=== PATIENT | male | born 1965 | race Hispanic/Latino ===

== ENCOUNTER 2020-12-31 19:25 | Emergency (ER) | payer SELFPAY ==
[2020-12-31 21:42] LABS: Absolute Lymphocytes (CBC) 1.4 K/uL (0.7-4.9); Hematocrit 35.5 % (39.6-49.0); Lymphocytes % 13.8 % (15.3-44.8); MPV 9.4 fL (7.6-11.3); RBC Red Blood Cell Count 3.81 M/uL (4.33-5.43)
[2020-12-31 21:45] LABS: Protime INR 1.02
--- NOTE | 2020-12-31 21:58 | RAD REPORT ---
EXAM DESCRIPTION: RAD - Chest Single View - 12/31/2020 9:45 pm CLINICAL HISTORY: COUGH COMPARISON: No comparisons FINDINGS: No evidence of edema or pneumonia. The heart size is within normal limits.No acute osseous abnormality. No significant pleural effusions or pneumothorax. Remote left-sided rib fractures. Susp ect emphysema. IMPRESSION: No acute cardiopulmonary disease.
--- NOTE | 2020-12-31 22:18 | RAD REPORT ---
EXAM DESCRIPTION: CT - Soft Tissue Neck W/Contr CLINICAL HISTORY: Dysphagia;Sore throat COMPARISON: Chest Single View dated 12/31/[address] scans are performed using dose optimization technique as appropriate and may includ e automated exposure control or mA/KV adjustment according to patient size. FINDINGS: Nasopharyngeal tissues are normal in appearance. Fossa Rosenmller are normal. Trace right maxillary sinus thickening. Parapharyngeal fat triangles are symmetric. Tongue base structures are normal. There is diffusely thickened and irregular aryepiglottic folds and pharyngeal space soft tissues. Messi ateral cervical chain lymphadenopathy. There is a left cervical chain lymph node which is necrotic me asuring 9 millimeters. Prominence of Waldeyer's ring noted. Salivary glands are normal in appearance. Bullous changes are present the left lung apex. There is a cavitary structure at the right lung apex with mildly thickened but non-nodular wall. Emphysema is noted. Included intracranial contents are un remarkable. IMPRESSION: 1. Diffusely thickened and irregular aryepiglottic folds and pharyngeal soft tissues ma y reflect neoplasm. Cervical chain lymphadenopathy is present as well. Recommend ENT referral/consult ation. 2. Fairly thin walled cavitary structure at the right lung apex probably scarring but recommend a ded icated imaging of the chest to better evaluate. Tuberculosis is a possibility. Bullous changes noted at the left lung apex.
[2020-12-31 22:19] LABS: ALT/SGPT 14 U/L (12-78); AST/SGOT 9 U/L (15-37); Albumin 3.6 g/dL (3.4-5.0); Alkaline Phosphatase 75 U/L (45-117); BUN Blood Urea Nitrogen 15 mg/dL (7-18); Bicarbonate 28 mmol/L (21-32); Bilirubin Direct < 0.1 mg/dL (0-0.2); Bilirubin Total 0.3 mg/dL (0.2-1.0); Glucose Level 93 mg/dL (74-106); Protein, Total 7.5 g/dL (6.4-8.2); Sodium Level 142 mmol/L (136-145)
[2021-01-01] MEDS ORDERED: POTASSIUM 25 MEQ EFFERV TAB ONE
--- NOTE | 2021-01-01 00:47 | EDPHYS ---
Physician Documentation [facility] Name: Jerome Iyer Age: 55 yrs Sex: Male : 1965 Arrival Date: 12/31/2020 Time: 19:28 Bed 19 Private MD: ED Physician Adan Perkins HPI: 12/31 21:00 This 55 yrs old Male presents to ER via Ambulatory with complaints of Sore mh7 Throat. 21:00 The patient presents with sore throat, dysphagia, of solids. The patient describes mh7 throat pain as intermittent. Onset: The symptoms/episode began/occurred 1 month(s) ago. Severity of symptoms: At their worst the symptoms were moderate, 7 day(s) ago, in the emergency department the symptoms are unchanged. Modifying factors: The symptoms are alleviated by nothing, the symptoms are aggravated by swallowing. Associated signs and symptoms: Pertinent positives: cough, dysphagia, nausea, Sore throat Pertinent negatives chest pain, chills, diarrhea, earache, fever, flu-like symptoms, headache, rhinorrhea, shortness of breath, vomiting. Historical: - Allergies: 19:49 No Known Allergies; kg - Home Meds: 19:49 None [Active]; kg - PMHx: 19:49 Asthma; kg - PSHx: 19:49 None; kg - Immunization history:: Adult Immunizations not up to date, Client reports having NOT received the Covid vaccine. - Social history:: Smoking status: Patient reports the use of cigarette tobacco products, smokes one-half pack cigarettes per day. ROS: 21:00 Constitutional: Negative for fever, chills, and weight loss, Eyes: Negative for injury, mh7 pain, redness, and discharge, Neck: Negative for injury, pain, and swelling, Cardiovascular: Negative for chest pain, palpitations, and edema, Abdomen/GI: Negative for abdominal pain, nausea, vomiting, diarrhea, and constipation, Back: Negative for injury and pain, : Negative for injury, bleeding, discharge, and swelling, MS/Extremity: Negative for injury and deformity, Skin: Negative for injury, rash, and discoloration, Neuro: Negative for headache, weakness, numbness, tingling, and seizure, Psych: Negative for depression, anxiety, suicide ideation, homicidal ideation, and hallucinations, Allergy/Immunology: Negative for hives, rash, and allergies, Endocrine: Negative for neck swelling, polydipsia, polyuria, polyphagia, and marked weight changes, Hematologic/Lymphatic: Negative for swollen nodes, abnormal bleeding, and unusual bruising. Exam: 21:00 Head/Face: Normocephalic, atraumatic. Eyes: Pupils equal round and reactive to light, mh7 extra-ocular motions intact. Lids and lashes normal. Conjunctiva and sclera are non-icteric and not injected. Cornea within normal limits. Periorbital areas with no swelling, redness, or edema. ENT: Nares patent. No nasal discharge, no septal abnormalities noted. Tympanic membranes are normal and external auditory canals are clear. Oropharynx with no redness, swelling, or masses, exudates, or evidence of obstruction, uvula midline. Mucous membranes moist. Neck: Trachea midline, no thyromegaly or masses palpated, and no cervical lymphadenopathy. Supple, full range of motion without nuchal rigidity, or vertebral point tenderness. No Meningismus. Chest/axilla: Normal chest wall appearance and motion. Nontender with no deformity. No lesions are appreciated. Cardiovascular: Regular rate and rhythm with a normal S1 and S2. No gallops, murmurs, or rubs. Normal PMI, no JVD. No pulse deficits. Respiratory: Lungs have equal breath sounds bilaterally, clear to auscultation and percussion. No rales, rhonchi or wheezes noted. No increased work of breathing, no retractions or nasal flaring. Abdomen/GI: Soft, non-tender, with normal bowel sounds. No distension or tympany. No guarding or rebound. No evidence of tenderness throughout. Back: No spinal tenderness. No costovertebral tenderness. Full range of motion. Skin: Warm, dry with normal turgor. Normal color with no rashes, no lesions, and no evidence of cellulitis. MS/ Extremity: Pulses equal, no cyanosis. Neurovascular intact. Full, normal range of motion. Neuro: Awake and alert, GCS 15, oriented to person, place, time, and situation. Cranial nerves II-XII grossly intact. Motor strength 5/5 in all extremities. Sensory grossly intact. Cerebellar exam normal. Normal gait. Psych: Awake, alert, with orientation to person, place and time. Behavior, mood, and affect are within normal limits. 21:00 Constitutional: The patient appears in no acute distress, alert, awake, frail. Vital Signs: 19:45 BP 148 / 102; Pulse 64; Resp 20; Temp 98.7(O); Pulse Ox 99% on R/A; Weight 44.81 kg kg (M); Height 6 ft. 1 in. (185.42 cm); Pain 10/10; 23:00 BP 144 / 90; Pulse 68; Resp 18; Pulse Ox 100% ; ea 01/01 00:30 BP 130 / 76; Pulse 66; Resp 18; Pulse Ox 99% on R/A; ea 12/31 19:45 Body Mass Index 13.03 (44.81 kg, 185.42 cm) kg MDM: 00:42 Differential diagnosis: epiglottitis, laryngitis, peritonsillar abscess pharyngitis, mh7 retropharyngeal abcess squamous cell carcinoma tonsillitis. Data reviewed: vital signs, nurses notes, lab test result(s), CBC, electrolytes, radiologic studies, CT scan. Data interpreted: Pulse oximetry: on room air is 99 %. Interpretation: normal. Counseling: I had a detailed discussion with the patient and/or guardian regarding: the historical points, exam findings, and any diagnostic results supporting the discharge/admit diagnosis, the presence of at least one elevated blood pressure reading (>120/80) during this emergency department visit, lab results, radiology results, the need for outpatient follow up, an ENT specialist, to return to the emergency department if symptoms worsen or persist or if there are any questions or concerns that arise at home. Response to treatment: the patient's symptoms have mildly improved after treatment. 00:46 Patient medically screened. [facility] 12/31 21:17 Order name: CBC with Diff [facility] 12/31 21:17 Order name: Basic Metabolic Panel [facility] 12/31 21:17 Order name: LFT's [facility] 12/31 21:17 Order name: Protime (+inr); Complete Time: 22:02 [facility] 12/31 21:17 Order name: Ptt, Activated; Complete Time: 22:02 [facility] 12/31 21:17 Order name: CBC with Automated Diff; Complete Time: 22:02 EDID 12/31 21:17 Order name: Saline Lock; Complete Time: 21:34 [facility] 07/23 21:17 Order name: Chest Single View XRAY; Complete Time: 22:02 [facility] 12/31 21:17 Order name: CT Soft Tissue Neck W/contr; Complete Time: 22:40 [facility] 12/31 21:18 Order name: Basic Metabolic Panel; Complete Time: 22:40 EDMS 12/31 21:18 Order name: Liver (Hepatic) Function; Complete Time: 22:40 EDMS Administered Medications: 00:46 Drug: Potassium Effervescent Tablet 50 mEq Route: PO; ea 00:49 Follow up: Response: Medication administered at discharge. 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 [facility] Followup: [facility] - With: Private Physician - When: 1 - 2 days - Reason: Worsening of condition, Recheck today's complaints, Continuance of care, Re-evaluation by your physician Followup: [facility] - With: Sachi Sharp MD - When: 1 - 2 days - Reason: Worsening of condition, Recheck today's complaints Discharge Instructions: - Discharge Summary Sheet [facility] - Dysphagia [facility] - Throat Cancer [facility] - Dysphagia Eating Plan, Pureed [facility] Forms: - Medication Reconciliation Form [facility] - Thank You Letter [facility] - Antibiotic Education [facility] - Prescription Opioid Use [facility] Signatures: Dispatcher [employer] Jennifer Bunch RN RN ea Holmes, Maurice, MD MD [facility] Darlin Topete RN RN kg
--- NOTE | 2021-01-01 00:47 | ER ---
Nurse's Notes 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 vomiting. Coronavirus screen: Client denies travel out of the [place] in the last 14 days. At this time, unable to obtain information related to travel outside the [place] At this time, the client does not indicate any symptoms associated with coronavirus-19. Ebola Screen: Patient negative for fever greater than or equal to 101.5 degrees Fahrenheit, and additional compatible Ebola Virus Disease symptoms Patient denies exposure to infectious person. Patient denies travel to an Ebola-affected area in the 21 days before illness onset. Initial Sepsis Screen: Does the patient meet any 2 criteria? No. Patient's initial sepsis screen is negative. Does the patient have a suspected source of infection? No. Patient's initial sepsis screen is negative. Risk Assessment: Do you want to hurt yourself or someone else? Patient reports no desire to harm self or others. Onset of symptoms was December 01, 2020. 19:45 Method Of Arrival: Ambulatory kg 19:45 Acuity: ALEXANDRA 3 kg Triage Assessment: 19:49 General: Appears emaciated, Behavior is calm, cooperative, appropriate for age, quiet. kg Pain: Complains of pain in neck. EENT: Throat with gag reflex present. Historical: - Allergies: 19:49 No Known Allergies; kg - Home Meds: 19:49 None [Active]; kg - PMHx: 19:49 Asthma; kg - PSHx: 19:49 None; kg - Immunization history:: Adult Immunizations not up to date, Client reports having NOT received the Covid vaccine. - Social history:: Smoking status: Patient reports the use of cigarette tobacco products, smokes one-half pack cigarettes per day. Screenin:50 Abuse screen: Denies threats or abuse. Denies injuries from another. Nutritional kg screening: No deficits noted. Tuberculosis screening: No symptoms or risk factors identified. Fall Risk None identified. No fall in past 12 months (0 pts). No secondary diagnosis (0 pts). No IV (0 pts). Ambulatory Aid- None/Bed Rest/Nurse Assist (0 pts). Gait- Normal/Bed Rest/Wheelchair (0 pts) Mental Status- Oriented to own ability (0 pts). Total Hercules Fall Scale indicates No Risk (0-24 pts). Assessment: 19:50 Respiratory: Airway is patent Trachea midline Respiratory effort is even, unlabored, kg relaxed. 20:21 General: Appears uncomfortable, Behavior is appropriate for age. Pain: Complains of ea pain in neck. Neuro: Level of Consciousness is awake, alert, obeys commands, Oriented to person, place, time. Cardiovascular: Patient's skin is warm and dry. Respiratory: Airway is patent Respiratory effort is even, unlabored. Derm: Skin is dry, Skin is normal, Skin temperature is warm. 22:50 Reassessment: Patient and/or family updated on plan of care and expected duration. Pain ea level reassessed. Patient is alert, oriented x 3, equal unlabored respirations, skin warm/dry/pink. 01/01 00:46 Reassessment: Patient and/or family updated on plan of care and expected duration. Pain ea level reassessed. Patient is alert, oriented x 3, equal unlabored respirations, skin warm/dry/pink. Discharge instruction given to patient verbalized the understanding of instruction. Pt left ED ambulatory accompanied by family. Vital Signs: 12/31 19:45 BP 148 / 102; Pulse 64; Resp 20; Temp 98.7(O); Pulse Ox 99% on R/A; Weight 44.81 kg kg (M); Height 6 ft. 1 in. (185.42 cm); Pain 10/10; 23:00 BP 144 / 90; Pulse 68; Resp 18; Pulse Ox 100% ; ea 01/01 00:30 BP 130 / 76; Pulse 66; Resp 18; Pulse Ox 99% on R/A; ea 12/31 19:45 Body Mass Index 13.03 (44.81 kg, 185.42 cm) kg ED Course: 12/31 19:28 Patient arrived in ED. ds1 19:49 Triage completed. kg 19:50 Arm band placed on left wrist. kg 19:50 Patient has correct armband on for positive identification. kg 20:13 Ponce, Jennifer, RN is Primary Nurse. ea 20:17 Adan Perkins MD is Attending Physician. [facility] 21:33 Inserted saline lock: 20 gauge in right forearm, using aseptic technique. Blood ea collected. 21:45 Chest Single View XRAY In Process Unspecified. EDSD 22:00 CT Soft Tissue Neck W/contr In Process Unspecified. EDSD 01/01 00:43 Sachi Sharp MD is Referral Physician. [facility] 00:47 No provider procedures requiring assistance completed. IV discontinued, intact, ea bleeding controlled, No redness/swelling at site. Pressure dressing applied. Administered Medications: 00:46 Drug: Potassium Effervescent Tablet 50 mEq Route: PO; ea 00:49 Follow up: Response: Medication administered at discharge. ea Outcome: 00:46 Discharge ordered by . [facility] 00:47 Discharged to home ambulatory, with family. ea 00:47 Condition: stable 00:47 Discharge instructions given to patient, Instructed on discharge instructions, follow up and referral plans. Demonstrated understanding of instructions, follow-up care. 00:57 Patient left the ED. ea Signatures: Dispatcher [employer] [facility] Trinidad Machado ds1 Jennifer Ponce, RN RN Adan Yancey MD MD [facility] Darlin Topete RN RN kg
[2021-01-01 01:35] VITALS: TEMP 98.7
[2021-01-01 01:38] VITALS: BP 130/76; O2SAT 99
== END 2021-01-01 00:57 | disposition home or self-care (01) ==
LOC: ER 19:25
DX: R13.10 Dysphagia, unspecified (principal); F17.210 Nicotine dependence, cigarettes, uncomplicated
CPT/HCPCS: 36415; 70491; 71045; 80048; 80076; 85025; 85610; 85730; 99284; Q9967

== ENCOUNTER 2021-01-27 11:10 | Emergency (ER) | payer SELFPAY ==
[2021-01-27 14:39] LABS: Absolute Lymphocytes (CBC) 1.5 K/uL (0.7-4.9); Basophils % 1.3 % (0-1.3); Hematocrit 37.4 % (39.6-49.0); Lymphocytes % 13.6 % (15.3-44.8); MPV 8.9 fL (7.6-11.3); RBC Red Blood Cell Count 3.98 M/uL (4.33-5.43)
[2021-01-27 14:46] LABS: BUN Blood Urea Nitrogen 14 mg/dL (7-18); Bicarbonate 28 mmol/L (21-32); Glucose Level 92 mg/dL (74-106); Potassium 3.4 mmol/L (3.5-5.1); Sodium Level 144 mmol/L (136-145)
--- NOTE | 2021-01-27 14:52 | RAD REPORT ---
EXAM DESCRIPTION: CT - Soft Tissue Neck W/Contr CLINICAL HISTORY: dysphagia, states worsened after biopsy this week Dysphagia, neck pain COMPARISON: Soft Tissue Neck W/Contr dated 12/31/2020; Chest Single View dated 12/31/[address] scans are performed using dose optimization technique as appropriate and may includ e automated exposure control or mA/KV adjustment according to patient size. FINDINGS: Large irregular mass is seen extending from the tongue base along the anterolateral margin s of the larynx inferiorly to involve the epiglottis, aryepiglottic folds and extending along the lef t aspect of the larynx. Demineralization of the left aspect of the left height over and the thyroid c artilage seen. Necrotic metastatic lymphadenopathy is present particularly level II on the left measuring 13 mm. No acute neck process is seen. Large apical bulla are present with irregular cavitary in the right upper lobe noted, unchanged. 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 Extent of disease appear s essentially unchanged since the comparative study. There is no acute neck process seen.
--- NOTE | 2021-01-27 15:45 | ER ---
Nurse's Notes [facility] Name: Jerome Iyer Age: 55 yrs Sex: Male : 1965 Arrival Date: 01/27/2021 Time: 11:11 Bed DIS8 Private MD: Diagnosis: Dysphagia, unspecified;Localized swelling, mass and lump, neck Presentation: 01/27 12:13 Chief complaint: Patient states: Pt stated, " I cant get any air, my throat is blocked. kg When I eat it gets clogged, when I drink water it chokes me. 12:21 Coronavirus screen: Client denies travel out of the [place] in the last 14 days. At this kg time, unable to obtain information related to travel outside the [place] At this time, the client does not indicate any symptoms associated with coronavirus-19. Ebola Screen: Patient negative for fever greater than or equal to 101.5 degrees Fahrenheit, and additional compatible Ebola Virus Disease symptoms Patient denies exposure to infectious person. Patient denies travel to an Ebola-affected area in the 21 days before illness onset. No symptoms or risks identified at this time. Initial Sepsis Screen: Does the patient meet any 2 criteria? No. Patient's initial sepsis screen is negative. Does the patient have a suspected source of infection? No. Patient's initial sepsis screen is negative. Risk Assessment: Do you want to hurt yourself or someone else? Patient reports no desire to harm self or others. Onset of symptoms is unknown. 12:21 Method Of Arrival: Wheelchair kg 12:21 Acuity: ALEXANDRA 3 kg Triage Assessment: 12:23 General: Appears uncomfortable, Behavior is calm, cooperative, appropriate for age, kg quiet. Pain: Complains of pain in neck. Historical: - Allergies: 12:23 No Known Allergies; kg - Home Meds: 12:23 None [Active]; kg - PMHx: 12:23 Asthma; kg - PSHx: 12:23 Biopsy of throat mass; kg - Immunization history:: Adult Immunizations not up to date, Client reports having NOT received the Covid vaccine. - Social history:: Smoking status: Patient reports the use of cigarette tobacco products, smokes one-half pack cigarettes per day. - Family history:: not pertinent. - Hospitalizations: : No recent hospitalization is reported. Vital Signs: 12:21 BP 132 / 96; Pulse 66; Resp 16; Temp 98.6(TE); Pulse Ox 99% on R/A; Weight 49.9 kg (R); kg Height 5 ft. 10 in. (177.80 cm) (R); Pain 8/10; 12:21 Body Mass Index 15.78 (49.90 kg, 177.80 cm) kg ED Course: 11:11 Patient arrived in ED. ds1 12:13 Darlin Topete, RN is Primary Nurse. kg 12:23 Triage completed. kg 12:23 Arm band placed on left wrist. kg 14:16 Compa Baca MD is Attending Physician. rn 14:35 CT Soft Tissue Neck W/contr In Process Unspecified. EDMS 15:45 aSchi Sharp MD is Referral Physician. rn 16:04 IV discontinued, bleeding controlled, No redness/swelling at site. Pressure dressing mb4 applied. Administered Medications: No medications were administered Outcome: 15:45 Discharge ordered by MD. rn 16:16 Discharged to home ambulatory. ld1 16:16 Condition: stable 16:16 Discharge instructions given to patient, Instructed on discharge instructions, follow up and referral plans. Demonstrated understanding of instructions, follow-up care. 16:16 Patient left the ED. ld1 Signatures: Dispatcher [employer] [facility] Trinidad Machado ds1 Compa Baca MD MD rn Baxter, Mackenzie mb4 Elham Michaud RN RN ld1 Darlin Topete RN RN kg Corrections: (The following items were deleted from the chart) 12:26 12:23 Home Meds: None; kg kg 12:26 12:23 Home Meds: Mass biospy throat; kg kg
--- NOTE | 2021-01-27 15:45 | EDPHYS ---
Physician Documentation [facility] Name: Jerome Iyer Age: 55 yrs Sex: Male : 1965 Arrival Date: 01/27/2021 Time: 11:11 Bed DIS8 Private MD: ED Physician Compa Baca HPI: 01/27 14:30 This 55 yrs old Male presents to ER via Wheelchair with complaints of rn Difficulty Swallowing. 14:30 The patient presents with dysphagia. The patient describes throat pain as raw. rn 14:30 Onset: The symptoms/episode began/occurred 1 month(s) ago. Severity of symptoms: At rn their worst the symptoms were moderate, in the emergency department the symptoms are unchanged. Modifying factors: The symptoms are alleviated by nothing, the symptoms are aggravated by swallowing. Associated signs and symptoms: Pertinent positives: dysphagia, Pertinent negatives fever, flu-like symptoms, shortness of breath. The patient has experienced similar episodes in the past. The patient has been recently seen by a physician:. Patient reports persistent pain with swallowing, states vomiting with solids and liquids. This has been going on for a month. Has already seen ENT who performed biopsy this past week. Has appointment next week for results and further planning.. Historical: - Allergies: 12:23 No Known Allergies; kg - Home Meds: 12:23 None [Active]; kg - PMHx: 12:23 Asthma; kg - PSHx: 12:23 Biopsy of throat mass; kg - Immunization history:: Adult Immunizations not up to date, Client reports having NOT received the Covid vaccine. - Social history:: Smoking status: Patient reports the use of cigarette tobacco products, smokes one-half pack cigarettes per day. - Family history:: not pertinent. - Hospitalizations: : No recent hospitalization is reported. ROS: 14:30 Constitutional: Negative for fever, chills, and weight loss, Eyes: Negative for injury, rn pain, redness, and discharge, ENT: Positive for pain with swallowing and difficulty swallowing Neck: Negative for injury, pain, and swelling, Cardiovascular: Negative for chest pain, palpitations, and edema, Respiratory: Negative for shortness of breath, cough, wheezing, and pleuritic chest pain, Abdomen/GI: Negative for abdominal pain, diarrhea, and constipation, Back: Negative for injury and pain, : Negative for injury, bleeding, discharge, and swelling, MS/Extremity: Negative for injury and deformity, Skin: Negative for injury, rash, and discoloration, Neuro: Negative for headache, weakness, numbness, tingling, and seizure. Exam: 14:30 Constitutional: Thin cachectic male, no acute distress Head/Face: Normocephalic, rn atraumatic. Eyes: Periorbital areas with no swelling, redness, or edema. Neck: Trachea midline Cardiovascular: Regular rate and rhythm. No pulse deficits. Respiratory: No increased work of breathing, no retractions or nasal flaring. Abdomen/GI: Soft, non-tender Skin: Warm, dry MS/ Extremity: Pulses equal, no cyanosis. Neuro: Awake and alert, GCS 15 Vital Signs: 12:21 BP 132 / 96; Pulse 66; Resp 16; Temp 98.6(TE); Pulse Ox 99% on R/A; Weight 49.9 kg (R); kg Height 5 ft. 10 in. (177.80 cm) (R); Pain 8/10; 12:21 Body Mass Index 15.78 (49.90 kg, 177.80 cm) kg MDM: 14:17 Patient medically screened. rn 15:43 Differential diagnosis: lymphoma, peritonsillar abscess squamous cell carcinoma Throat rn cancer. Data reviewed: vital signs, nurses notes, old medical records, lab test result(s), radiologic studies, CT scan, and as a result, I will discharge patient. Counseling: I had a detailed discussion with the patient and/or guardian regarding: the historical points, exam findings, and any diagnostic results supporting the discharge/admit diagnosis, lab results, radiology results, the need for outpatient follow up, to return to the emergency department if symptoms worsen or persist or if there are any questions or concerns that arise at home. Special discussion: I discussed with the patient/guardian in detail that at this point there is no indication for admission to the hospital. It is understood, however, that if the symptoms persist or worsen the patient needs to return immediately for re-evaluation. Based on the history and exam findings, there is no indication for further emergent testing or inpatient evaluation. I discussed with the patient/guardian the need to see the ENT specialist for further evaluation of the symptoms. ED course: No gross changes on CT neck. Still findings consistent with cancer. Patient has already been evaluated and biopsied with ENT notes. Recommend ENT follow-up and given return precautions. Patient sitting with the lemonade bottle in hand.. 01/27 14:16 Order name: CBC with Diff; Complete Time: 15:31 rn 01/27 14:16 Order name: Basic Metabolic Panel; Complete Time: 15:31 rn 01/27 14:16 Order name: IV Start; Complete Time: 15:35 rn 01/27 14:16 Order name: CT Soft Tissue Neck W/contr; Complete Time: 15:31 rn 01/27 15:13 Order name: CREATININE WHOLE BLOOD EDMS Administered Medications: No medications were administered Disposition Summary: 01/27/21 15:45 Discharge Ordered Location: Home rn Problem: an ongoing problem rn Symptoms: are unchanged rn Condition: Stable rn Diagnosis - Dysphagia, unspecified rn - Localized swelling, mass and lump, neck rn Followup: rn - With: Sachi Sharp MD - When: As needed - Reason: Recheck today's complaints, Re-evaluation by your physician Discharge Instructions: - Discharge Summary Sheet rn - Dysphagia rn Forms: - Medication Reconciliation Form rn - Thank You Letter rn - Antibiotic architectural intern - Prescription Opioid Use rn Signatures: Dispatcher [employer] EDMS Compa Baca MD MD rn Graham, Kristen, RN RN kg Corrections: (The following items were deleted from the chart) 12:26 12:23 Home Meds: None; kg kg 12:26 12:23 Home Meds: Mass biospy throat; kg kg
[2021-01-27 16:22] VITALS: BP 132/96; TEMP 98.6; O2SAT 99
== END 2021-01-27 16:16 | disposition home or self-care (01) ==
LOC: ER 11:10
DX: R22.1 Localized swelling, mass and lump, neck (principal); F17.210 Nicotine dependence, cigarettes, uncomplicated
CPT/HCPCS: 36415; 70491; 80048; 82565; 85025; 99283; Q9967